=== PATIENT | male | born 1930 | race Caucasian/White ===

== ENCOUNTER 2019-05-22 08:41 | Inpatient (IN) | payer OTHER ==
[~2019-05-22] VITALS: Ht 182.9 cm; Wt 83.9 kg
[~2019-05-22 08:41] MED LIST: CARB1TAB21 PO; CHOL100038 PO; FAMO40TA7 PO; LOSA50TA3 PO; METO25TA6 PO; OMEP20CA11 PO; SER25 PO
[2019-05-22 08:45] VITALS: BP_SYST 196
[2019-05-22] MEDS ORDERED: NACL 0.9% 1,000 ML IV ONE (09:00)
[2019-05-22] MEDS ORDERED: CARB1TAB21 PO (09:20)
[2019-05-22] MEDS ORDERED: albuterol (09:20)
[2019-05-22] MEDS ORDERED: LOSA50TA3 PO ×2 (09:20→11:00)
[2019-05-22] MEDS ORDERED: COLL100 PO (09:20)
[2019-05-22] MEDS ORDERED: SER25 PO ×2 (09:20→11:00)
[2019-05-22] MEDS ORDERED: METO25TA6 PO ×2 (09:20→11:00)
[2019-05-22] MEDS ORDERED: CHOL100038 PO (09:20)
[2019-05-22] MEDS ORDERED: OMEP20CA11 PO (09:20)
[2019-05-22 09:37] LABS: BASOPHILS # (AUTO) 0.1 K/uL (0.0-0.2); EOSINOPHILS # (AUTO) 0.1 K/uL (0.0-0.4); EOSINOPHILS % (AUTO) 1.7 % (0.0-4.0); HEMATOCRIT 43.8 % (36-54); HEMOGLOBIN 14.6 g/dL (14.0-18.0); LYMPHOCYTES # (AUTO) 1.7 K/uL (1.0-5.5); LYMPHOCYTES % (AUTO) 22.2 % (20.5-51.5); MEAN CORPUSCULAR HEMOGLOBIN 30 pg (27-31); MEAN CORPUSCULAR HGB CONC 34 % (32-36); MEAN CORPUSCULAR VOLUME 91 fL (79.0-98.0); MONOCYTES # (AUTO) 0.4 K/uL (0.0-1.0); MONOCYTES % (AUTO) 5.8 % (1.7-9.3); NEUTROPHILS # (AUTO) 5.3 K/uL (1.8-7.7); NEUTROPHILS % (AUTO) 69.3 % (40.0-70.0); PLATELET COUNT (AUTO) 243 K/uL (130-430); RED BLOOD CELL COUNT(AUTO) 4.82 MIL/uL (4.2-6.2); RED CELL DISTRIBUTION WIDTH 14.4 % (9.0-15.0); WHITE BLOOD COUNT (AUTO) 7.6 K/uL (4.8-10.8)
[2019-05-22 09:56] LABS: BILIRUBIN,URINE NEGATIVE (NEGATIVE); BLOOD, URINE 1+ (NEGATIVE); CLARITY/URINE SL CLOUDY (CLEAR); COLOR,URINE YELLOW (YELLOW); GLUCOSE,URINE NEGATIVE (NEGATIVE); KETONES,URINE NEGATIVE (NEGATIVE); LEUKOCYTE ESTERASE ,URINE 3+ (NEGATIVE); NITRITE, URINE POSITIVE (NEGATIVE); PH,URINE 6.5 (5.0-8.0); PROTEIN URINE TRACE (NEGATIVE); UROBILINOGEN,URINE 0.2 (0.2-1.0)
[2019-05-22 09:57] LABS: BACTERIA,URINE MODERATE /HPF (None Seen); WBC,URINE >100 /HPF (0-3)
[2019-05-22 10:00] LABS: ANION GAP 7 (5-15); CALCIUM 8.7 mg/dL (8.4-11.0); CHLORIDE 109 mmol/L (98-107); CREATININE 0.92 mg/dL (0.55-1.30); GLUCOSE 95 mg/dL (70-99); POTASSIUM 4.4 mmol/L (3.5-5.1); SODIUM SERUM 143 mmol/L (136-145); UREA NITROGEN, BLOOD 19 mg/dL (8-21)
[2019-05-22 10:03] LABS: INR 1.1 (0.80-1.20)
[2019-05-22 10:08] LABS: ALANINE AMINOTRANSFERASE 20 U/L (12-78); ALBUMIN 3.4 g/dL (3.4-4.8); ASPARTATE AMINOTRANSFERASE 15 U/L (10-37); TOTAL BILIRUBIN 0.7 mg/dL (0.0-1.0)
[2019-05-22] MEDS ORDERED: CARB-61 PO (11:00)
[2019-05-22] MEDS ORDERED: OMEP20CA11 (11:00)
[2019-05-22 11:41] VITALS: BP_SYST 186
[2019-05-22 11:45] VITALS: BP_SYST 186
[2019-05-22] MEDS ORDERED: cloNIDine HCL 0.1 MG TABLET PO ONE (14:45)
[2019-05-22] MEDS ORDERED: cloNIDine HCL 0.1 MG TABLET ONE (15:28)
[2019-05-22 15:35] VITALS: BP_SYST 163
[2019-05-22] MEDS ORDERED: ENALAPRILAT DIHYDRATE 1.25 MG/ML VIAL IVP PRN (17:00)
[2019-05-22] MEDS: LEVOFLOXACIN 500 MG/D5W 100 ML IV SCH (17:59)
[2019-05-22 20:00] VITALS: BP_SYST 152
[2019-05-22] MEDS ORDERED: QUEtiapine FUMARATE 25 MG TABLET PO SCH (21:00)
[2019-05-22] MEDS: METOPROLOL TARTRATE 25 MG TABLET PO SCH (21:34)
[2019-05-22] MEDS: QUEtiapine FUMARATE 25 MG TABLET PO SCH (21:34)
[2019-05-23] VITALS (7 sets, daily range): BP systolic 122–180
[2019-05-23] MEDS: LOSARTAN POTASSIUM 50 MG TABLET (COZAAR) PO SCH (08:53)
[2019-05-23] MEDS: METOPROLOL TARTRATE 25 MG TABLET PO SCH ×2 (08:53→21:21)
[2019-05-23] MEDS: PANTOPRAZOLE SODIUM 40 MG TAB PO SCH (08:53)
[2019-05-23] MEDS ORDERED: OMEPRAZOLE Non-Formulary 20 MG CAPSULE.DR PO SCH (09:00)
[2019-05-23] MEDS ORDERED: LOSARTAN POTASSIUM 50 MG TABLET (COZAAR) PO SCH ×2 (09:00)
[2019-05-23] MEDS: cloNIDine HCL 0.1 MG TABLET PO PRN (15:28)
[2019-05-23] MEDS: LEVOFLOXACIN 500 MG/D5W 100 ML IV SCH (17:43)
[2019-05-23] MEDS: QUEtiapine FUMARATE 25 MG TABLET PO SCH (21:21)
[2019-05-24] VITALS (9 sets, daily range): BP systolic 137–170
[2019-05-24] MEDS: METOPROLOL TARTRATE 25 MG TABLET PO SCH ×2 (09:05→21:00)
[2019-05-24] MEDS: LOSARTAN POTASSIUM 50 MG TABLET (COZAAR) PO SCH (09:05)
[2019-05-24] MEDS: PANTOPRAZOLE SODIUM 40 MG TAB PO SCH (09:06)
[2019-05-24] MEDS: cloNIDine HCL 0.1 MG TABLET PO PRN (11:34)
[2019-05-24] MEDS: LEVOFLOXACIN 500 MG/D5W 100 ML IV SCH (16:45)
[2019-05-24] MEDS ORDERED: VANCOMYCIN HCL 1,500 MG in NS 250 ML IV SCH (22:00)
[2019-05-24] MEDS: QUEtiapine FUMARATE 25 MG TABLET PO SCH (22:08)
[2019-05-25] MEDS ORDERED: VANCOMYCIN HCL 1000 MG/VIAL IV ONE (00:47)
[2019-05-25] MEDS ORDERED: VANCOMYCIN HCL 500 MG/VIAL IV ONE (00:48)
[2019-05-25 02:20] VITALS: BP_SYST 172
[2019-05-25] MEDS: cloNIDine HCL 0.1 MG TABLET PO PRN (02:22)
[2019-05-25 06:35] VITALS: BP_SYST 157
[2019-05-25 10:03] LABS: ALANINE AMINOTRANSFERASE 26 U/L (12-78); ANION GAP 5 (5-15); ASPARTATE AMINOTRANSFERASE 20 U/L (10-37); CALCIUM 8.6 mg/dL (8.4-11.0); CHLORIDE 110 mmol/L (98-107); CREATININE 1.09 mg/dL (0.55-1.30); GLUCOSE 129 mg/dL (70-99); POTASSIUM 3.5 mmol/L (3.5-5.1); SODIUM SERUM 141 mmol/L (136-145); TOTAL BILIRUBIN 0.8 mg/dL (0.0-1.0); UREA NITROGEN, BLOOD 24 mg/dL (8-21)
[2019-05-25] MEDS: LOSARTAN POTASSIUM 50 MG TABLET (COZAAR) PO SCH (10:22)
[2019-05-25] MEDS: METOPROLOL TARTRATE 25 MG TABLET PO SCH ×2 (10:22→20:47)
[2019-05-25] MEDS: PANTOPRAZOLE SODIUM 40 MG TAB PO SCH (10:23)
[2019-05-25 12:56] VITALS: BP_SYST 134
[2019-05-25] MEDS ORDERED: VANCOMYCIN HCL 1,000 MG in NS 250 ML IV SCH (13:00)
[2019-05-25 15:57] VITALS: BP_SYST 158
[2019-05-25] MEDS: LEVOFLOXACIN 500 MG/D5W 100 ML IV SCH (17:00)
[2019-05-25 17:04] VITALS: BP_SYST 170
[2019-05-25 20:30] VITALS: BP_SYST 154
[2019-05-25] MEDS: QUEtiapine FUMARATE 25 MG TABLET PO SCH (20:47)
== END 2019-05-25 20:56 | DRG 689 ==
LOC: SED 08:41 → SMU 10:42 → STU 05-23 08:58
PROVIDERS: ADMIT Internal Medicine Hospice and Palliative Medicine; ATTEND Internal Medicine Hospice and Palliative Medicine
DX: N39.0 Urinary tract infection, site not specified (principal); G93.41 Metabolic encephalopathy; R40.2344 Coma scale, best motor response, flexion withdrawal, 24 hours or more after hospital admission; I25.10 Atherosclerotic heart disease of native coronary artery without angina pectoris; F02.80 Dementia in other diseases classified elsewhere, unspecified severity, without behavioral disturbance, psychotic disturbance, mood disturbance, and anxiety; G20 Parkinson's disease; Z96.659 Presence of unspecified artificial knee joint; Z98.61 Coronary angioplasty status; Z87.891 Personal history of nicotine dependence; Z88.0 Allergy status to penicillin; Z91.041 Radiographic dye allergy status; Z79.899 Other long term (current) drug therapy
CPT/HCPCS: 36415; 70450-TC; 71045; 80053; 81000-TC; 83605; 84484; 85025; 85610-TC; 85730-TC; 87040-TC; 87086; 87186-TC; 92610-GN; 93005; 93306; 96360; 99291; G0378; J1956; J3370; J7030; J7050